=== PATIENT | male | born 1980 | race Caucasian/White ===

== ENCOUNTER 2016-07-08 21:26 | Emergency (ER) | payer MEDICARE, OTHER ==
[~2016-07-08] VITALS: Ht 180.3 cm; Wt 99.5 kg
[~2016-07-08 21:26] MED LIST: CEPH500C3 PO; CLIN1CAP6 PO; IBUP800T23 PO
[2016-07-08 21:32] VITALS: BP 139/97; PULSE 104; RESP 18; TEMP 98.6; O2SAT 95
--- NOTE | 2016-07-08 22:11 | PD ---
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 He states approximately 3-1/2 hours prior to exam he was walking and stepped in a hole and twisted his knee. He is unsure of the exact mechanism. He states he has dropfoot and this is likely the reason that he stepped in a hole as he has chronic dropfoot. He has lower extremity reduced sensation chronically with no acute worsening. He has been able to bear weight and walk although it is difficult. He denies pain in the ankle or hip. He denies hitting his head. No attempts at palliation. PFSH Past Medical History Cancer: No Cardiovascular Problems: No Cerebrovascular Accident: Yes Genitourinary: No Hiatal Hernia: No Musculoskeletal: No Neurologic: Yes ("LEFT SIDE HEMIPARESIS FROM BLACK MOLD INFX") Reproductive: No Respiratory: No Past Surgical History Neurologic Surgery: Yes (BRAIN BIOPSY) Pacemaker: No Other Surgery: No Social History Alcohol Use: No Tobacco Use: Yes (2PPD) Substance Use: No Allergies-Medications (Allergen,Severity, Reaction): Coded Allergies: No Known Allergies (Verified , 07/08/16) Reported Meds & Prescriptions Reported Meds & Active Scripts Active Naproxen 500 Mg Tab 500 Mg PO BID Review of Systems HENT: No: Headaches Musculoskeletal: Positive: Other (see the history of present illness) Neurologic: Positive: Weakness (chronic left-sided hemiparesis), Focal Abnormalities (chronic left hemiparesis, none new), Sensory Disturbance ( chronic left leg reduced sensation, nothing acute), No: Paresthesia Physical Exam Narrative GENERAL: Well-developed and well-nourished adult male in no acute distress. SKIN: Warm and dry. Good turgor without tenting. HEAD: Normocephalic and atraumatic. EYES: PERRL bilaterally, 5mm. EOMI bilaterally. No injection or icterus present. No proptosis. Lids without edema or erythema. CARDIOVASCULAR: Regular rate and rhythm without murmurs, rubs, clicks or gallops. Radial and posterior tibial pulses 2+ bilaterally. No pedal edema. RESPIRATORY: Clear to auscultation bilaterally with symmetrical rise and fall, no distress or use of accessory muscles. MUSCULOSKELETAL: Left knee has no edema or discoloration. Normal range of motion in the knee. Some tenderness upon palpation of the left medial tibial plateau. Negative Farhan sign. No patellar or fibular head tenderness. Negative anterior and posterior drawer test the left knee. Negative varus and valgus for the left knee. Extremities without clubbing, cyanosis, or edema. No obvious deformities. NEUROLOGIC: CN II-XII grossly intact. Awake and alert. Strength 4/5 left hip flexion, hip extension, knee flexion and knee extension. Strength 2/5 left foot dorsi flexion, strength 0/5 left foot plantar flexion. Sensation intact to the L3 through S2 dermatomes on the left. Normal speech. PSYCHIATRIC: Appropriate mood and affect; insight and judgment normal. Data Data Last Documented VS Vital Signs Date Time Temp Pulse Resp B/P Pulse Ox O2 Delivery O2 Flow Rate FiO2 07/08/16 21:32 98.6 104 18 139/97 95 Orders Ketorolac Inj (Toradol Inj) (07/08/16 22:15) Knee, Ltd (1 Or 2vws) (07/08/16 22:04) Splint Or Brace Apply/Monitor (07/08/16 22:41) MDM Medical Decision Making Medical Screen Exam Complete: Yes Emergency Medical Condition: Yes Differential Diagnosis Knee sprain versus meniscus injury versus ligamentous injury Narrative Course Patient 36-year-old male with a history of left-sided hemiparesis from old infection in his brain in 2003 presenting with left knee injury. 3/2 hours prior to exam he was walking and stepped in a hole and twisted the left knee. He has some pain with palpation of the tibial plateau on the left medial knee. No increased laxity of the knee. No bony tenderness of the patella or fibular head. Normal range of motion. Fairly good strength given history of hemiparesis, sensation intact. She was given Toradol. Ordered x-ray which shows tilting of the patella suggesting effusion although no note of visualized effusion. No bony abnormality. Patient likely has sprained given the full constellation of history, findings and radiology. Patient given prescription for naproxen and Dillon wrap for the knee. As he has hemiparesis and chronic mobility issues I think that a knee immobilizer with raise his risk of falls substantially and he certainly is not a candidate for crutches. Recommend ice and elevation and following up with PCP or orthopedist on Sunday. As he walked here and the buses start running and he cannot get in touch with any friends or [place] nurse was contacted to provide a taxi pass to help the patient get to his residence.See discharge paperwork for further instructions. The plan was discussed with the patient who acknowledged their understanding and agreement. Reinforced the follow-up with primary care is critically important. Patient instructed on emergent conditions that should prompt return to ED. Diagnosis Primary Impression: Sprain of left knee Qualified Code: S83.412A - Sprain of medial collateral ligament of left knee, initial encounter Patient Instructions: General Instructions, Knee Sprain (ED) Additional Instructions: Take medications as prescribed Apply ice every 1 to 2 hours as needed for pain Avoid maneuvers that aggravate pain Keep DILLON bandage on while being active or using extremity Elevate when at rest Be aware that may take several weeks for sprains to heal fully Follow-up with PCP or orthopedist on Sunday Return to the ED for any acute worsening of symptoms Med/Other Pt SpecificInfo: Prescription(s) given Scripts Naproxen 500 Mg [id number] Mg PO BID #10 TAB Prov:Gilbert Sanchez MD 07/08/16 Disposition: 01 DISCHARGE HOME Condition: Stable Marc Ascencio III Jul 08, 2016 22:10
[2016-07-08] MEDS ORDERED: KETOROLAC TROMETHAMINE 60 MG/2 ML (IM) VIAL IM ONE (22:15)
--- NOTE | 2016-07-08 22:39 | RADHPO ---
EXAM DATE/TIME: 07/08/2016 22:19 [facility] COMPARISON: No previous studies available for comparison. INDICATIONS : Left knee pain post fall today. MEDICAL HISTORY : Left side paraylsis. SURGICAL HISTORY : None. ENCOUNTER: Initial ACUITY: 1 day PAIN SCORE: 5/10 LOCATION: Left knee. FINDINGS: Two view examination of the left knee demonstrates no evidence of fracture or dislocation. Bony mine ralization is normal. The suprapatellar soft tissues reveal tilting of the patella suggesting joint effusion CONCLUSION: No acute bony injury. Tilted patella suggesting joint effusion Carroll Valverde MD on July 08, 2016 at 22:36 Board Certified Radiologist. This report was verified electronically.
[2016-07-08] MEDS ORDERED: NAPR500T PO (22:41)
[2016-07-09] MEDS ORDERED: WELL200T PO (19:50)
== END 2016-07-08 23:02 | disposition home or self-care (01) ==
LOC: PHEFT 21:26
DX: S83.412A Sprain of medial collateral ligament of left knee, initial encounter (principal); G81.94 Hemiplegia, unspecified affecting left nondominant side; F17.210 Nicotine dependence, cigarettes, uncomplicated; X50.1XXA Overexertion from prolonged static or awkward postures, initial encounter; Y93.01 Activity, walking, marching and hiking
CPT/HCPCS: 73560; 96372; 99283; J1885

== ENCOUNTER 2016-07-09 15:00 | Inpatient (IN) | payer MEDICARE, OTHER ==
[~2016-07-09] VITALS: Ht 180.3 cm; Wt 94.9 kg
[~2016-07-09 15:00] MED LIST changes: -CEPH500C3 PO; -CLIN1CAP6 PO; -IBUP800T23 PO; +NAPR500T PO
[2016-07-09 15:02] VITALS: BP 142/95; PULSE 92; RESP 20; TEMP 98.2; O2SAT 95
[2016-07-09 15:50] LABS: BASOPHIL # 0.1 TH/MM3 (0-0.2); BASOPHIL % 0.8 % (0.0-2.0); EOSINOPHIL # 0.2 TH/MM3 (0-0.4); EOSINOPHIL % 2.7 % (0.0-4.0); HEMATOCRIT 41.9 % (39.0-51.0); HEMO FLAGS DIFF FINAL; LYMPH % 31.6 % (9.0-44.0); LYMPHOCYTE # 2.2 TH/MM3 (1.0-4.8); MEAN CELL VOLUME 79.3 FL (80.0-100.0); MEAN CORPUSCULAR HEMOGLOBIN 26.8 PG (27.0-34.0); MEAN CORPUSCULAR HGB CONC 33.8 % (32.0-36.0); MONO % 7.1 % (0.0-8.0); NEUT % 57.8 % (16.0-70.0); PLATELET COUNT 259 TH/MM3 (150-450); RED BLOOD COUNT 5.28 MIL/MM3 (4.50-5.90); RED CELL DISTRIBUTION WIDTH 14.2 % (11.6-17.2); WHITE BLOOD COUNT 6.9 TH/MM3 (4.0-11.0)
[2016-07-09 15:59] LABS: AMPHETAMINE, URINE POS (NEG); BARBITURATES, URINE NEG (NEG); COCAINE, URINE NEG (NEG)
[2016-07-09 16:50] LABS: BICARBONATE 25.7 MEQ/L (21.0-32.0)
--- NOTE | 2016-07-09 16:57 | PD ---
HPI Chief Complaint: Psychiatric Symptoms Time Seen by Provider: 16:50 Travel History International Travel<30 days: No Contact w/Intl Traveler<30days: No Traveled to known affect area: No History of Present Illness HPI 36-year-old male with history of left-sided hemiparesis secondary to previous black mold infection, as well as history of bipolar disorder, and methamphetamine abuse comes in stating that he wants to get clean, and states that "if he stands other night outdoors he will kill himself". Patient is currently voluntary and cooperative. He states he twisted his knee in the other day, and was seen in [facility] emergency department, and diagnosed with a sprain. He denies any other current acute medical problems. Patient has no known drug allergies. PFSH Past Medical History Cancer: No Cardiovascular Problems: No Cerebrovascular Accident: Yes Genitourinary: No Hiatal Hernia: No Musculoskeletal: No Neurologic: Yes ("LEFT SIDE HEMIPARESIS FROM BLACK MOLD INFX") Reproductive: No Respiratory: No Past Surgical History Neurologic Surgery: Yes (BRAIN BIOPSY) Pacemaker: No Other Surgery: No Social History Alcohol Use: No Tobacco Use: Yes (2PPD) Substance Use: No Allergies-Medications (Allergen,Severity, Reaction): Coded Allergies: No Known Allergies (Verified , 07/08/16) Reported Meds & Prescriptions Reported Meds & Active Scripts Active Naproxen 500 Mg Tab 500 Mg PO BID Review of Systems Except as stated in HPI: all other systems reviewed are Neg General / Constitutional: No: Fever Eyes: No: Visual changes HENT: No: Headaches Cardiovascular: No: Chest Pain or Discomfort Respiratory: No: Shortness of Breath Gastrointestinal: No: Abdominal Pain Genitourinary: No: Dysuria Musculoskeletal: No: Pain Skin: No Rash Neurologic: No: Weakness Psychiatric: No: Depression Endocrine: No: Polydipsia Hematologic/Lymphatic: No: Easy Bruising Physical Exam Narrative GENERAL: Patient appears anxious but in no acute distress. SKIN: Warm and dry. Normal color. Normal turgor. No signs of trauma. HEAD: Atraumatic. Normocephalic. EYES: Pupils equal and round. No scleral icterus. No injection or drainage. ENT: No nasal bleeding or discharge. Mucous membranes pink and moist. Pharynx is clear. Airway is patent. NECK: Trachea midline. No JVD. Neck is supple nontender. CARDIOVASCULAR: Regular rate and rhythm. RESPIRATORY: No accessory muscle use. Clear to auscultation. Breath sounds equal bilaterally. GASTROINTESTINAL: Abdomen soft, non-tender, nondistended. Hepatic and splenic margins not palpable. MUSCULOSKELETAL: Extremities without clubbing, cyanosis, or edema. No obvious deformities. NEUROLOGICAL: Awake and alert. No obvious cranial nerve deficits. Motor grossly within normal limits. Patient has left-sided hemiparesis on the left arm than the left leg which is his baseline.. Normal speech. PSYCHIATRIC: Appropriate mood and affect; insight and judgment normal. Data Data Last Documented VS Vital Signs Date Time Temp Pulse Resp B/P Pulse Ox O2 Delivery O2 Flow Rate FiO2 07/09/16 16:44 18 07/09/16 15:02 98.2 92 142/95 95 Room Air Orders Complete Blood Count With Diff (07/09/16 15:06) Basic Metabolic Panel (Bmp) (07/09/16 15:06) Drug Screen, Random Urine (07/09/16 15:06) Psych Screen (07/09/16 16:57) Labs Laboratory Tests Test 07/09/16 15:21 White Blood Count 6.9 TH/MM3 Red Blood Count 5.28 MIL/MM3 Hemoglobin 14.2 GM/DL Hematocrit 41.9 % Mean Corpuscular Volume 79.3 FL Mean Corpuscular Hemoglobin 26.8 PG Mean Corpuscular Hemoglobin 33.8 % Concent Red Cell Distribution Width 14.2 % Platelet Count 259 TH/MM3 Mean Platelet Volume 7.3 FL Neutrophils (%) (Auto) 57.8 % Lymphocytes (%) (Auto) 31.6 % Monocytes (%) (Auto) 7.1 % Eosinophils (%) (Auto) 2.7 % Basophils (%) (Auto) 0.8 % Neutrophils # (Auto) 4.0 TH/MM3 Lymphocytes # (Auto) 2.2 TH/MM3 Monocytes # (Auto) 0.5 TH/MM3 Eosinophils # (Auto) 0.2 TH/MM3 Basophils # (Auto) 0.1 TH/MM3 CBC Comment DIFF FINAL Differential Comment Sodium Level 139 MEQ/L Potassium Level 4.0 MEQ/L Chloride Level 104 MEQ/L Carbon Dioxide Level 25.7 MEQ/L Anion Gap 9 MEQ/L Blood Urea Nitrogen 11 MG/DL Creatinine 1.05 MG/DL Estimat Glomerular Filtration 80 ML/MIN Rate Random Glucose 121 MG/DL Calcium Level 8.4 MG/DL Urine Opiates Screen NEG Urine Barbiturates Screen NEG Urine Amphetamines Screen POS Urine Benzodiazepines Screen NEG Urine Cocaine Screen NEG Urine Cannabinoids Screen NEG MDM Medical Decision Making Medical Screen Exam Complete: Yes Emergency Medical Condition: Yes Differential Diagnosis Polysubstance abuse. Mood disorder. Suicidal ideation. Narrative Course Patient is medically stable at time of exam. Psychiatric labs ordered as per protocol. Patient is medically clear for psychiatric evaluation. Diagnosis Primary Impression: Medical clearance for psychiatric admission Additional Impressions: Polysubstance abuse Mood disorder Condition: Stable Saul Sethi Jul 09, 2016 16:57
[2016-07-09 18:05] VITALS: BP 136/77; PULSE 87; RESP 18; TEMP 98.2; O2SAT 98
[2016-07-09] MEDS ORDERED: WELL200T PO (19:50)
[2016-07-09 20:32] VITALS: BP 143/86; PULSE 90; RESP 18; TEMP 98.6; O2SAT 99
[2016-07-09] MEDS ORDERED: ACETAMINOPHEN 325 MG TAB PO PRN (21:15)
[2016-07-09] MEDS ORDERED: diphenhydrAMINE HCL 50 MG CAP - HS PRN PO (21:15)
[2016-07-09] MEDS ORDERED: diphenhydrAMINE HCL 50 MG/ML VIAL - HS PRN IM (21:15)
[2016-07-09] MEDS ORDERED: MAGNESIUM HYDROXIDE SUSP 30 ML CUP PO PRN (21:15)
[2016-07-09] MEDS ORDERED: ALUMINUM/MAGNESIUM/SIMETH 30 ML CUP PO PRN (21:15)
[2016-07-09] MEDS ORDERED: hydrOXYzine HCL 50 MG TAB PO PRN (21:15)
[2016-07-09 21:54] VITALS: BP 146/80; PULSE 88; RESP 18; TEMP 97.5; O2SAT 98
[2016-07-09 22:27] VITALS: BP 153/95; PULSE 88; RESP 18; TEMP 98.6; O2SAT 97
[2016-07-10 05:54] VITALS: BP 154/100; PULSE 86; RESP 18; TEMP 98.1; O2SAT 98
[2016-07-10 05:55] VITALS: BP 165/90
[2016-07-10] MEDS ORDERED: NICOTINE 21 MG/24 HR PATCH T-DERMAL SCH (09:00)
--- NOTE | 2016-07-10 10:51 | HHI.HP ---
Provisional Diagnosis Admission Date Jul 09, 2016 at 20:40 [place]. 1. Stimulant dependence 2. Malingering suicidal ideation for long term [place] II. Deferred [place] V. GAF is 55 presently, decreased secondary to substance use Certification of Person's Competence To Provide Express and Informed Consent I have personally examined Kevon Plascencia , a person being served at [facility] on, Jul 10, 2016 10:51. Express and informed consent means consent voluntarily given in writing, by a competent person, after sufficient explanation and disclosure of the subject matter involved to enable the person to make a knowing and willful decision without any element of force, fraud, deceit, duress, or other form of constraint or coercion. This person is 18 years of age or older, is not now known to be incompetent to consent to treatment with a guardian advocate, and does not have a health care surrogate or proxy currently making medical treatment decisions. I have found this person to be one of the following: [x] Competent to provide express and informed consent, as defined above, for voluntary admission to this facility and is competent to provide express and informed consent for treatment. He/she has the consistent capacity to make well reasoned, willful, and knowing decisions concerning his or her medical or mental health treatment. The person fully and consistently understands the purpose of the admission for examination/placement and is fully capable of personally exercising all rights assured [place] Incompetent to provide express and informed consent to voluntary admission, and this is incompetent to provide express and informed consent to treatment. The person must be transferred to involuntary status and a petition for a guardian advocate filed with the Circuit Court. [] Refusing to provide express and informed consent to voluntary admission but is competent to provide express and informed consent for treatment. The person must be discharged or transferred to involuntary status. Form shall be completed within 24 hours of a person's arrival at the receiving facility and filed in the clinical record of each person: 1. Admitted on a voluntary basis 2. Permitted to provide express and informed consent to his/her own treatment 3. Allowed to transfer from involuntary to voluntary status 4. Prior to permitting a person to consent to his or her own treatment after having been previously found incompetent to consent to treatment. History of Present Illness Capacity: Has Capacity HPI Mr. Plascencia is a 36-year-old male with a reported history of bipolar illness who presented voluntarily to the emergency department voicing suicidal ideation. Patient has been admitted to the inpatient psychiatric unit. Reviewing the electronic medical record, I see the patient was seen in consultation by Dr. Mello and Dr. Mock during a hospitalization in 2005 but otherwise has no psychiatric contact within our system. Patient seen and examined with counselor. Chart reviewed. Case discussed with nurse on the inpatient psychiatric unit. Patient says his goal in coming into the emergency room was "I want to get into rehab." He reports that he has a long-standing methamphetamine addiction and has spent 7 of the last 15 years in correction related to methamphetamine abuse. He says he is presently homeless "basically, living outside, it's been so damn cold. There is no way I am going to do that," and so he malingered suicidal ideation to obtain admission to the unit. Presently he denies any suicidal or homicidal ideation. He denies any audiovisual hallucinations and I can elicit no delusional beliefs including but not limited to paranoia, thought manipulation or ideas of reference. The patient is a little dysphoric, but I can elicit no real symptoms of a major depressive episode or a manic or hypomanic episode. The remainder of the psychiatric ROS is negative. Past psychiatric history: Patient reports a prior diagnosis of bipolar disorder but reports that he has done the best on antidepressant monotherapy, namely Wellbutrin at a dose of 300 mg a day. He is not under the care of a psychiatrist and has not seen one in several years by his report. He takes no psychotropic medications currently. He denies a history of psychiatric admissions or suicide attempts. Review of Systems ROS Limitations: Poor Historian Other Patient reports that he has a history of left-sided hemiparesis related to some sort of insult connected with black mold. Otherwise no physical complaints at this time. Past Psych History Psychological trauma history Patient denies any history of physical, verbal or sexual abuse Violence risk - others (6 mos) Lower imminent risk. Denies homicidal ideation. No evidence of any unstable mood, anxiety or psychotic disorder that might contribute to risk for violence. Substance use is a chronic risk factor. Violence risk - self (6 mos) Lower imminent risk. Denies suicidal ideation. No evidence of any unstable mood, anxiety or psychotic disorder that might contribute to risk for suicide. Substance use is, here again, a chronic risk factor. Substance Abuse History Drugs/Alcohol past 12 months Patient admits to daily use of methamphetamines. He also smokes 2-3 packs of cigarettes daily. He denies any other substance use. Past Family Social History Coded Allergies: No Known Allergies (Verified , 07/08/16) Past Medical History Patient reports left sided hemiparesis for reasons noted above. Reported Medications Bupropion HCl ER 12 HR (Wellbutrin SR 12 HR)200 Mg [id number] Mg PO Q12HR Ref 0 07/09/16 Discontinued Reported Medications Ibuprofen 800 Mg [id number] Mg PO Q6H PRN (PAIN SCALE 1 TO 7) 01/21/15 Discontinued Scripts Naproxen 500 Mg Hyg608 Mg PO BID #10 TAB Prov:Gilbert Sanchez MD 07/08/16 Clindamycin Hcl (Clindamycin Hcl)300 Mg Vak105 Mg PO QID #40 CAP Ref 0 Prov:Migel Elizabeth MD 01/21/15 Cephalexin (Keflex)500 Mg Cxg537 Mg PO Q8 #30 CAP Ref 0 Prov:Migel Elizabeth MD 01/21/15 Current Medications Medications (Trade) Dose Ordered Sig/Velia Route Start Time Stop Time Status Last Admin (Atarax) 50 mg Q6H PRN PO 07/09/16 21:15 (Benadryl) 50 mg HS PRN PO 07/09/16 21:15 (Benadryl Inj) 50 mg HS PRN IM 07/09/16 21:15 (Tylenol) 650 mg Q4H PRN PO 07/09/16 21:15 (Milk Of Magnesia Liq) 30 ml DAILY PRN PO 07/09/16 21:15 (Mag-Al Plus Susp Liq) 30 ml Q6H PRN PO 07/09/16 21:15 (Habitrol 21 Mg Patch.24 Hr) 1 patch DAILY T-DERMAL 07/10/16 09:00 07/10/16 09:22 Miscellaneous Information 1 HS T-DERMAL 07/10/16 21:00 Family History Patient reports that his grandmother, sister and maternal uncle struggle with schizophrenia versus bipolar illness. He denies any real family history of substance use disorder. He says his paternal aunt completed suicide. 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 He says he has never been homeless before. He is single but has a daughter who lives with her mother. He denies any history but notes severe legal consequences from his substance use as noted above. No reported history of violent crime. Denies any buddhist beliefs. Denies any access to guns or firearms. He collects about $800 a month in disability. Patient's Strengths (min. 2) Maintaining basic hygiene. Verbally fluent. Physical Exam A physical examination was completed in the emergency room by the ER staff and the patient was medically cleared. On my examination today, the patient appears to be in no acute physical distress although he does have the motoric deficits as noted above. No signs of GABAergic withdrawal. No other motoric abnormalities noted. Labs and vital signs reviewed. Vital Signs Vital Signs Date Time Temp Pulse Resp B/P Pulse Ox O2 Delivery O2 Flow Rate FiO2 07/10/16 05:55 165/90 07/10/16 05:54 98.1 86 18 98 07/09/16 21:54 Room Air Lab Results Item Value Date Time White Blood Count 6.9 TH/MM3 07/09/16 1521 Hemoglobin 14.2 GM/DL 07/09/16 1521 Platelet Count 259 TH/MM3 07/09/16 1521 Sodium Level 139 MEQ/L 07/09/16 1521 Potassium Level 4.0 MEQ/L 07/09/16 1521 Chloride Level 104 MEQ/L 07/09/16 1521 Carbon Dioxide Level 25.7 MEQ/L 07/09/16 1521 Anion Gap 9 MEQ/L 07/09/16 1521 Blood Urea Nitrogen 11 MG/DL 07/09/16 1521 Creatinine 1.05 MG/DL 07/09/16 1521 Random Glucose 121 MG/DL H 07/09/16 1521 Urine Amphetamines Screen POS H 07/09/16 1521 Mental Status Examination Patient is in hospital gown. He is well groomed and maintaining basic hygiene. He is awake and alert and oriented 3. No abnormal motor movements noted except as above. Speech is within normal limits for rate, tone and volume. Language and fund of knowledge seem adequate appropriate for age. Mood is a little dysphoric but not really depressed and affect is consistent with stated mood. Thought process linear. No loosening of associations. No evident delusions. Denies audiovisual hallucinations. Denies suicidal or homicidal ideation. Insight and judgment are fair. Assessment & Plan Problem List: (1) Stimulant dependence ICD Code: F15.20 (2) Malingering ICD Code: Z76.5 Assessment & Plan This is a 36-year-old male with psychiatric history as detailed above who presents on a voluntary basis with complaints of suicidal ideation. Patient tells me that he wants to go to a drug rehabilitation program and says that he malingered his suicidal ideation in order to obtain admission to the inpatient psychiatric unit because he is presently otherwise homeless. I can detect no unstable mood, anxiety or psychotic disorder in this patient at this time. Given his reported substance use issues and his desire for drug rehabilitation, I think it is not unreasonable to try to arrange for transfer to a drug treatment facility today as this would be better suited to manage his active issue, namely the substance use disorder. Substance use is indeed likely his greatest risk factor for harm to self/others, although I suspect he is otherwise at low imminent risk after weighing the acute, chronic, and protective factors. Counselor to work on arranging transfer to a drug treatment facility. Patient may sign voluntary. UPDATE: Counselor informs me that patient has been accepted at [facility] for further treatment there. I will arrange for his discharge to [facility] today in stable condition. He is to follow up as directed at [facility]. He is also to follow up with primary care. I have provided no Rx on discharge as patient has been on no scheduled psychotropics here. This note serves also as my discharge summary. Discharge Planning Discharge today to a [facility] Request HC Surrog/Guard Advoc?: No Javier Maharaj MD Jul 10, 2016 10:51
[2016-07-10] MEDS ORDERED: WELLTAB39 PO (16:12)
[2016-07-10] MEDS ORDERED: cloNIDine HCL 0.1 MG TAB PO PRN (16:15)
[2016-07-10 20:34] VITALS: BP 141/99; PULSE 83; RESP 18; TEMP 97.4; O2SAT 99
[2016-07-10] MEDS ORDERED: REMOVE OLD NICOTINE PATCH T-DERMAL SCH (21:00)
== END 2016-07-10 21:45 | DRG 897 ==
LOC: NEPE 15:00 → NEDA 20:40 → H270 22:00
PROVIDERS: ADMIT Psychiatry & Neurology Psychiatry; ATTEND Psychiatry & Neurology Psychiatry
DX: F15.20 Other stimulant dependence, uncomplicated (principal); G81.94 Hemiplegia, unspecified affecting left nondominant side; F17.210 Nicotine dependence, cigarettes, uncomplicated; Z76.5 Malingerer [conscious simulation]; Z59.0 Homelessness
CPT/HCPCS: 80048; 80307; 85025; 99284